=== PATIENT | male | born 1950 | race Caucasian/White ===

== ENCOUNTER 2018-11-13 13:38 | Inpatient (IN) | payer MEDICARE, SELFPAY | END 2018-11-15 16:33 | DRG 683 | PROVIDERS: Admitting Provider Internal Medicine; Emergency Provider Emergency Medicine; PCP Family Medicine; Visit Provider Internal Medicine | DX: N18.6 End stage renal disease (principal); I13.11 Hypertensive heart and chronic kidney disease without heart failure, with stage 5 chronic kidney disease, or end stage renal disease; I50.32 Chronic diastolic (congestive) heart failure; J96.11 Chronic respiratory failure with hypoxia; L97.319 Non-pressure chronic ulcer of right ankle with unspecified severity; D63.1 Anemia in chronic kidney disease; S00.83XA Contusion of other part of head, initial encounter; E11.621 Type 2 diabetes mellitus with foot ulcer; E11.22 Type 2 diabetes mellitus with diabetic chronic kidney disease; E11.319 Type 2 diabetes mellitus with unspecified diabetic retinopathy without macular edema; E11.21 Type 2 diabetes mellitus with diabetic nephropathy; E11.42 Type 2 diabetes mellitus with diabetic polyneuropathy; E78.5 Hyperlipidemia, unspecified; F41.8 Other specified anxiety disorders; M19.90 Unspecified osteoarthritis, unspecified site; G47.33 Obstructive sleep apnea (adult) (pediatric); N40.0 Benign prostatic hyperplasia without lower urinary tract symptoms; Z99.2 Dependence on renal dialysis; Z89.411 Acquired absence of right great toe; Z99.81 Dependence on supplemental oxygen; W18.39XA Other fall on same level, initial encounter | CPT/HCPCS: 36415; 36430; 70450; 72125; 80048; 80053; 82607; 82728; 82746; 83010; 83036; 83540; 83550; 83615; 84439; 84443; 84466; 85014; 85018; 85025; 85027; 85046; 86706; 86850; 86900; 86901; 86920; 87340; 93005; 93306; 96361; 96374; 97161; 97166; 99285; A9270; G0257; G0378; J1644; J1940; J7030; J7050; P9016; Q4081; Q9957 ==

== ENCOUNTER 2019-07-26 08:25 | Observation (INO) | payer MEDICARE, SELFPAY ==
[2019-07-26] VITALS (17 sets, daily range): BP systolic 139–188; BP diastolic 71–106; PULSE 58–102; RESP 14–32; TEMP 36.6–36.7; O2SAT 90–100; BMI 31.2
--- NOTE | ~2019-07-26 | XR_ITS ---
XR humerus RT 07/26/2019 10:05 INDICATION: Right arm pain after fall PROCEDURE: 2 views right humerus COMPARISON: No prior studies for comparison. FINDINGS: Fracture, dislocation or subluxation is not identified. There are arterial calcifications. The soft tissues appear within normal limits. No foreign bodies are identified. IMPRESSION: 1: NO ACUTE BONE OR JOINT ABNORMALITY IDENTIFIED. Reviewed, dictated and finalized at location B. [employer]
--- NOTE | ~2019-07-26 | CT_ITS ---
EXAMINATION: CTA brain carotid DATE: 07/26/2019 09:49 INDICATION: Right hemiparesis. TECHNIQUE: Computed tomographic angiography (CTA) of the head was performed without and with 100 mL O mnipaque-350 intravenous contrast. CTA of the neck was performed with intravenous contrast. Automated exposure control and iterative reconstruction technique were employed. The dose-length product was 1 847.45 mGy-cm. Maximum intensity projection and volume rendered 3D-reconstructions were created by lisa mendoza technologist on a separate workstation. COMPARISON: Head CT 11/13/2018 FINDINGS: HEAD CTA: There is no intracranial hemorrhage, acute infarction, or abnormal intracranial mass lesion . The ventricles are normal in size. The vertebral arteries are codominant. There is mucosal thickeni ng in the paranasal sinuses and dependent fluid in right maxillary sinus. There are periapical lucenc ies around tooth #7. The mastoid air cells are normal. There are likely changes of ocular lens replac ement surgeries. There is no significant stenosis of basilar artery or the posterior cerebral arterie s. There is no significant stenosis of the intracranial internal carotid arteries or anterior or midd le cerebral arteries. Anterior communicating artery is normal. Right posterior communicating artery i s normal. A left posterior communicating artery is not identified. There is no aneurysm. NECK CTA: Calcified mediastinal lymph nodes are consistent with old granulomatous disease. There is p laque in the proximal internal carotid arteries. There is 7% stenosis of the proximal right internal carotid artery relative to normal distal artery lumen diameter (NASCET criteria). There is 14% stenos is of the proximal left internal carotid artery relative to normal distal artery lumen diameter. Ther e is no significant stenosis of the vertebral arteries. There is severe cervical spondylosis. IMPRESSION: 1. Normal brain. 2. No aneurysm or significant intracranial arterial stenosis. 3. 7% stenosis of the proximal right internal carotid artery relative to normal distal artery lumen d iameter (NASCET criteria). 4. 14% stenosis of the proximal left internal carotid artery relative to normal distal artery lumen d iameter. Reviewed, dictated and finalized at location A. E BLENDER IMPRESSION: 1. Normal brain. 2. No aneurysm or significant intracranial arterial stenosis. 3. 7% stenosis of the proximal right internal carotid artery relative to normal distal artery lumen diameter (NASCET criteria). 4. 14% stenosis of the proximal left internal carotid artery relative to normal distal artery lumen diameter.
--- NOTE | ~2019-07-26 | XR_ITS ---
XR chest 2V 07/26/2019 09:10 Indication: CHF. Weakness. Procedure: AP and lateral views of the chest Comparison: Comparison to multiple prior studies sequentially, with oldest reviewed study dated 02/06. Findings: Elevated right diaphragm. There is airspace disease in the lower lungs, left greater than r ight. No pleural effusion or pneumothorax. There is atherosclerosis. No acute osseous abnormality. Impression: 1: Bibasilar airspace disease which may represent pneumonia or edema. Reviewed, dictated and finalized at location B. HAT ENGINEER Impression: 1: Bibasilar airspace disease which may represent pneumonia or edema.
--- NOTE | 2019-07-26 08:24 | ECG_ITS ---
Measurements Intervals [place] Rate: 96 P: 97 DE: 189 QRS: -31 QRSD: 111 T: 101 QT: 393 QTc: 498 Interpretive Statements SINUS RHYTHM LEFT AXIS DEVIATION DELAYED PRECORDIAL R/S TRANSITION LEFT VENTRICULAR HYPERTROPHY AND ST-T CHANGE BASELINE WANDER- I, II, AVR BORDERLINE ECG Electronically Signed On 07-26-2019 8:39:01 EXCELLENCE SPECIALIST by Joseph Ramires D.O.
--- NOTE | 2019-07-26 08:46 | ED.WEAKNESS ---
HPI - Weakness General Chief complaint: Weakness Stated complaint: WEAKNESS Time Seen by Provider: 07/26/19 08:43 Source: patient and RN notes reviewed Mode of arrival: EMS Limitations: no limitations History of Present Illness HPI Narrative: Pt is a 69 y/o male who presents to the ED via EMS with c/o generalized and rt arm weakness. He notes that he is currently on dialysis, and states that he received a normal treatment yesterday. Pt notes that he has had SOB for the past several days, and states that he developed generalized weakness yesterday. He also reports having a burning pain in the lt side of his chest last night, but denies any CP currently. Pt states that he woke up and disconnected his BIPAP machine to go to the bathroom earlier this morning, when he suddenly became weak and slowly fell to the ground around 7:30 AM. Pt was holding a cane using right arm before he fall. Pt notes that he landed on his rt elbow during the fall, and currently reports an abrasion on his rt elbow. He states that he believes he never fully lost consciousness, but notes that he felt off after the fall. Pt reports rt arm weakness starting sometime between when he fell and when he arrived to the ED. He states that he has a Hx of similar symptoms, noting that his last episode was attributed to abnormal potassium levels. MD Complaint: generalized weakness and focal weakness Onset (ago): unknown Location: RUE Context: history of similar Associated symptoms: chest pain (lt sided chest pain (resolved)), shortness of breath and other (abrasion on rt elbow) Related Data Home Medications Medication Instructions Recorded Confirmed cholecalciferol (vitamin D3) 125 5,000 unit PO DAILY 06/28/19 07/26/19 mcg (5,000 unit) tablet glimepiride 2 mg tablet 2 mg PO QACDINNER 06/28/19 07/26/19 melatonin 2.5 mg chewable tablet 2.5 mg PO DAILY 06/28/19 07/26/19 sertraline 50 mg tablet 50 mg PO BID 06/28/19 07/26/19 sevelamer carbonate 800 mg tablet 800 mg PO TID 06/28/19 07/26/19 amlodipine 2.5 mg PO DAILY 07/26/19 07/26/19 linagliptin [Tradjenta] 5 mg PO QAM 07/26/19 07/26/19 tamsulosin [Flomax] 0.4 mg PO HS 07/26/19 07/26/19 Allergies Allergy/AdvReac Type Severity Reaction Status Date / Time No Known Allergies Allergy Verified 07/26/19 08:38 Review of Systems Review of Systems: All systems reviewed & are unremarkable except as noted in HPI and below Constitutional: Constitutional: Denies chills, Denies fever(s), Denies headache(s) and Reports weakness (generalized) Cardiovascular: Cardiovascular: Reports chest pain (lt sided chest pain (resolved)) Respiratory: Respiratory: Reports dyspnea Gastrointestinal: Gastrointestinal: Denies abdominal pain, Denies diarrhea, Denies nausea and Denies vomiting Musculoskeletal: Musculoskeletal: Denies back pain and Denies neck pain Integumentary/Breasts: Skin/Breast: Reports wounds (abrasion on rt elbow) Neurologic: Reports focal weakness (rt arm weakness) and Denies other (LOC) [facility] Past Medical History Medical History Anemia in chronic kidney disease Anxiety Arthritis Cataracts, bilateral CHF (congestive heart failure) Chronic diabetic ulcer of right foot determined by examination Chronic hypercapnic respiratory failure 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 to type 2 diabetes mellitus Depression Diabetic neuropathy with neurologic complication Eczema History of amputation of hallux [place] (hard of hearing) HTN (hypertension) Nonrheumatic aortic (valve) stenosis Physical debility Restrictive airway disease Sleep apnea Type 2 diabetes mellitus with diabetic neuropathy, unspecified Vocal cord dysfunction Surgical History Surgical History Amputation of right great toe History of laryngoscopy Hx of cataract surgery Hx of left knee surgery Family History Family History (Reviewed 0
--- NOTE | 2019-07-26 08:48 | PC.NURSE ---
PT INFORMED OF NEED FOR URINE SAMPLE, NOTED THAT HE DOES NOT PRODUCE MUCH URINE, REFUSING STRAIGHT CATH AT THIS TIME, STATES HE WILL ATTEMPT AGAIN LATER.
--- NOTE | 2019-07-26 08:49 | PC.NURSE ---
MARISOL EDWARDS AT BEDSIDE ATTEMPTING BLOOD DRAW.
--- NOTE | 2019-07-26 09:00 | PC.NURSE ---
PT UNABLE TO PRODUCE URINE, REFUSING STRAIGHT CATH, STATES HE WILL ATEMPT LATER.
[2019-07-26 09:01] LABS: Basophils Percent Auto 0.5 % (0.2-1.2); Hematocrit 28.6 % (42.0-52.0); Hemoglobin 9.1 g/dL (14.0-18.0); Immature Granulocyte Absolute 0.02 K/mm3 (0.00-0.031); Immature Granulocyte Percent A 0.5 % (0-0.5); Immature Platelet Fraction Pct 7.2 % (0.9-11.2); Lymphocytes Percent Auto 7.7 % (18.3-44.2); Mean Corpuscular HGB Conc 31.8 g/dl (32-36); Mean Corpuscular Hemoglobin 30.7 pg (26-34); Mean Corpuscular Volume 96.6 fl (80-100); Mean Platelet Volume 11.7 fl (7.4-10.4); Monocytes Absolute Auto 0.4 K/mm3 (0.1-0.6); Monocytes Percent Auto 9.3 % (2.6-8.5); Neutrophils Absolute Auto 3.2 K/mm3 (1.3-6.7); Platelet Count Result 96 k/mm3 (150-375); Red Blood Count 2.96 M/mm3 (4.6-6.20); Red Cell Distribution Width 12.8 % (11.5-14.5); White Blood Count 3.9 K/mm3 (4.5-10.0)
[2019-07-26 09:11] LABS: Alanine Aminotransferase 14 U/L (4-50); Albumin Level 3.9 g/dL (3.5-5.1); Alkaline Phosphatase 95 U/L (38-126); Aspartate Amino Transferase 28 U/L (17-59); Bilirubin,Total 0.9 mg/dL (0.2-1.3); Blood Urea Nitrogen 33 mg/dL (9-20); Calcium 8.1 mg/dL (8.4-10.2); Carbon Dioxide 25 mmol/L (22-30); Chloride 98 mmol/L (98-107); Estimated CRCL calculation 20 ml/min; Estimated Glomerular Filt Rate 15; Glucose 158 mg/dL (75-110); Potassium 4.1 mmol/L (3.4-5.0); Sodium 138 mmol/L (137-145)
--- NOTE | 2019-07-26 09:30 | PC.NURSE ---
PT UNABLE TO PRODUCE URINE, REFUSING STRAIGHT CATH, STATES HE WILL ATEMPT LATER.
--- NOTE | 2019-07-26 10:00 | PC.NURSE ---
PT UNABLE TO PRODUCE URINE, REFUSING STRAIGHT CATH, STATES HE WILL ATEMPT LATER.
--- NOTE | 2019-07-26 10:32 | PC.NURSE ---
Addendum entered by Jolynn Tabares RN 07/26/19 10:32: PT HAS URINAL AT BEDSIDE. Original Note: PT UNABLE TO PRODUCE URINE SPECIMEN AT THIS TIME, REFUSING CATH.
--- NOTE | 2019-07-26 10:41 | PC.NURSE ---
Called to lab for troponin baseline add on.
[2019-07-26 11:03] LABS: Add Urine Microscopic? YES; Appearance Urine Clear (Clear); Bacteria Urine Trace /hpf; Bilirubin Urine Negative (Negative); Blood Urine 1+ (Negative); Color Urine Yellow (Yellow); Glucose Urine UA 2+ mg/dL (Negative); Ketones Urine Negative (Negative); Leukocyte Esterase Ur Negative LEU/UL (Negative); Mucus Urine Rare /lpf; Nitrate Urine Negative (Negative); Protein Urine 3+ mg/dL (Negative); RBC Urine 0-2 /hpf (0-2); Specific Grav Ur 1.014 (1.001-1.035); Urobilinogen Urine Negative mg/dL (<2.0); WBC Urine 0-3 /hpf
--- NOTE | 2019-07-26 12:06 | PC.NURSE ---
PHARMACY ON THE PHONE WITH DR. MALDONADO ABOUT HEPARIN DRIP.
[2019-07-26] MEDS: ASPIRIN 81 MG CHEWABLE TABLET 324 MG PO (12:08)
--- NOTE | 2019-07-26 12:13 | PC.NURSE ---
SPOKE WITH MARIA L FROM PHARMACY ABOUT HEPARIN, STATES TO HOLD ON GIVING TO PT BECAUSE SHE NEEDS TO MODIFY THE ORDER AND TALK TO THE PHYSICIAN AGAIN.
[2019-07-26] MEDS: HEPARIN SOD/D5W 100 UNITS/ML 25,000 UNITS/250 ML BAG 10 UNITS IV CONT (12:43)
--- NOTE | 2019-07-26 13:30 | PC.NURSE ---
This patient, Duong Pratt, was admitted to Intensive Care Unit-11. Patient/family oriented to hospital policies and general routines including ID bracelet, bed and alarms, visiting hours, pain management, procedures, bathroom and other care routines, personal items, smoking policy, room service/diet, and visiting hours. Valuables list has been completed. Information on how to activate the Rapid Response Team has been discussed. Patient/Family are encouraged to report perceived risks to care and to ask questions if they do not understand what they are told or what they should do.
[2019-07-26 13:54] LABS: Basophils Percent Auto 0.5 % (0.2-1.2); Eosinophils Percent Auto 0.3 % (0-4.4); Hematocrit 27.7 % (42.0-52.0); Hemoglobin 8.7 g/dL (14.0-18.0); Immature Granulocyte Absolute 0.01 K/mm3 (0.00-0.031); Immature Granulocyte Percent A 0.3 % (0-0.5); Lymphocytes Absolute Auto 0.32 K/mm3 (0.9-3.2); Lymphocytes Percent Auto 8.7 % (18.3-44.2); Mean Corpuscular HGB Conc 31.4 g/dl (32-36); Mean Corpuscular Hemoglobin 30.4 pg (26-34); Mean Corpuscular Volume 96.9 fl (80-100); Mean Platelet Volume 11.8 fl (7.4-10.4); Monocytes Absolute Auto 0.4 K/mm3 (0.1-0.6); Monocytes Percent Auto 10.1 % (2.6-8.5); Neutrophils Absolute Auto 2.9 K/mm3 (1.3-6.7); Neutrophils Percent Auto 80.1 % (45.5-73.1); Platelet Count Result 91 k/mm3 (150-375); Red Blood Count 2.86 M/mm3 (4.6-6.20); White Blood Count 3.7 K/mm3 (4.5-10.0)
[2019-07-26 14:42] LABS: INR 1.2; Prothrombin Time 14.8 Seconds (11.1-14.7)
[2019-07-26 14:43] LABS: Partial Thromboplastin Time 33.7 SECONDS (22.3-36.8)
--- NOTE | 2019-07-26 15:35 | WPDNEURCNPN ---
Assessment and Plan Assessment and plan (1) Right arm weakness: Code(s): R29.898 - Other symptoms and signs involving the musculoskeletal system Status: Acute (2) Restrictive airway disease: Code(s): J98.4 - Other disorders of lung Status: Acute (3) Nonrheumatic aortic (valve) stenosis: Code(s): I35.0 - Nonrheumatic aortic (valve) stenosis Status: Acute (4) [place] (hard of hearing): Code(s): H91.90 - Unspecified hearing loss, unspecified ear Status: Acute (5) Anemia in chronic kidney disease: Code(s): N18.9 - Chronic kidney disease, unspecified; D63.1 - Anemia in chronic kidney disease Status: Acute (6) Chronic hypercapnic respiratory failure: Code(s): J96.12 - Chronic respiratory failure with hypercapnia Status: Acute (7) 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 to type 2 diabetes mellitus: Code(s): E11.22 - Type 2 diabetes mellitus with diabetic chronic kidney disease; N18.6 - End stage renal disease; Z99.2 - Dependence on renal dialysis Status: Acute (8) TIA (transient ischemic attack): Code(s): G45.9 - Transient cerebral ischemic attack, unspecified Status: Acute Additional Plan this is most likely peripheral than the central however the patient has multiple factors which predisposed him to have a stroke so I will order the brain MRI and also cervical MRI in the meantime continue aspirin for stroke prophylaxis Consult date: 07/26/19 Time Seen: 15:15 HPI: Duong Pratt is a 69 year old male who is right-handed and is a dialysis patient was admitted because of the right arm weakness which is improving however it is associated with the pain in the distribution of the upper trunk of the blackish plexus and or C5 or C6 distribution he denies any problem with his lack he denies any neck pain he denies any headache nausea vomiting chest pain or shortness of breath he was given aspirin in the emergency room and is on heparin because of increased troponin the patient did not have any of these episodes in the past Review of Systems Review of Systems: All systems reviewed & are unremarkable except as noted in HPI and below PMFSH Past Medical History Medical History Anemia in chronic kidney disease Anxiety Arthritis Cataracts, bilateral CHF (congestive heart failure) Chronic diabetic ulcer of right foot determined by examination Chronic hypercapnic respiratory failure 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 to type 2 diabetes mellitus Depression Diabetic neuropathy with neurologic complication Eczema History of amputation of hallux [place] (hard of hearing) HTN (hypertension) Nonrheumatic aortic (valve) stenosis Physical debility Restrictive airway disease Sleep apnea Type 2 diabetes mellitus with diabetic neuropathy, unspecified Vocal cord dysfunction Surgical History Surgical History Amputation of right great toe History of laryngoscopy Hx of cataract surgery Hx of left knee surgery Family History Family History Mother Cerebrovascular accident Family history of diabetes mellitus in first degree relative Patient's mother is Sibling Family history of lung cancer Patient's brother is Other Family history of arthritis Social History Social History Social History: Smoking status: Never smoker Second hand tobacco smoke exposure: No Alcohol intake: never Substance use: never Substance use type: does not use Gender identity (if verbalized by the patient): Male Meds Home Medications and Allergies Home Medications Medication Instructions Recorded Confirmed Type atorvastatin 20 mg tablet 20 mg PO QPM
--- NOTE | 2019-07-26 16:26 | PM.CNCAR ---
Assessment and Plan Assessment and plan (1) Chest pain: Qualifiers: Chest pain type: unspecified Qualified Code(s): R07.9 - Chest pain, unspecified Code(s): R07.9 - Chest pain, unspecified Status: Acute Assessment and Plan: Seems to be ischemic in nature, he has elevated troponin, indicative of non ST elevation myocardial infarction. Start aspirin heparin, will proceed with cardiac catheterization. (2) ESRD (end stage renal disease) on dialysis: Code(s): N18.6 - End stage renal disease; Z99.2 - Dependence on renal dialysis Status: Acute (3) Nonrheumatic aortic (valve) stenosis: Code(s): I35.0 - Nonrheumatic aortic (valve) stenosis Status: Acute Assessment and Plan: Will get echocardiogram to evaluate severity of aortic valve stenosis (4) NSTEMI (non-ST elevated myocardial infarction): Code(s): I21.4 - Non-ST elevation (NSTEMI) myocardial infarction Status: Acute Assessment and Plan: Will proceed with cardiac cath today Will plan cardiac catheterization. The procedure was discussed with the patient, risks, benefits, and alternative diagnostic measure was explained, patient agreed to the procedure. Thank you for allowing me to participate in this patient's care, I will be following up with you. Please do not hesitate to call me for any other inquiry History of Present Illness History of Present Illness Consult date/time: 07/26/19 16:26 Chief complaint is chest pain and syncope. 69-year-old gentleman with history of diabetes mellitus, history of aortic valve stenosis, history of renal failure on hemodialysis came to the hospital here because of chest pain yesterday and says episode of syncope earlier this morning. A he came to the hospital here noted to have elevated troponin with troponin as high as 3.7. His pain lasted for 30 minutes or so and subsequently subsided, and he still having significant shortness of breath. Apparently he sees doctors at [facility] and he has been seen for aortic valve stenosis. But did not have cardiac catheterization yet. Apparently was supposed to have an echocardiogram done as an outpatient before his next follow up with him there. He has significant shortness of breath, known lung disease, known renal failure on hemodialysis. He has mild orthopnea mild leg swelling and mild claudication as above history of syncope with no palpitation Reason For Visit: Right arm weakness Review of Systems Constitutional: Constitutional: Reports fatigue and Reports lethargy Cardiovascular: Cardiovascular: Reports as per HPI Respiratory: Respiratory: Reports dyspnea and Reports dyspnea on exertion PMFSH Past Medical History Medical History Anemia in chronic kidney disease Anxiety Arthritis Cataracts, bilateral CHF (congestive heart failure) Chronic diabetic ulcer of right foot determined by examination Chronic hypercapnic respiratory failure 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 to type 2 diabetes mellitus Depression Diabetic neuropathy with neurologic complication Eczema History of amputation of hallux [place] (hard of hearing) HTN (hypertension) Nonrheumatic aortic (valve) stenosis Physical debility Restrictive airway disease Sleep apnea Type 2 diabetes mellitus with diabetic neuropathy, unspecified Vocal cord dysfunction Surgical History Surgical History Amputation of right great toe History of laryngoscopy Hx of cataract surgery Hx of left knee surgery Family History Family History Mother Cerebrovascular accident Family history of diabetes mellitus in first degree relative Patient's mother is Sibling Family history of lung cancer Patient's brother is Other Family history of a
--- NOTE | 2019-07-26 16:49 | WPDMODSED ---
Moderate Sedation Note-Pt Data Patient Data Allergies Allergy/AdvReac Type Severity Reaction Status Date / Time No Known Allergies Allergy Verified 07/26/19 08:38 Home Medications Medication Instructions Recorded Confirmed Type atorvastatin 20 mg tablet 20 mg PO QPM #90 tablet 03/27/19 07/26/19 Rx furosemide 80 mg tablet 80 mg PO BID #180 tablet 05/10/19 07/26/19 Rx cholecalciferol (vitamin D3) 125 5,000 unit PO DAILY 06/28/19 07/26/19 History mcg (5,000 unit) tablet glimepiride 2 mg tablet 2 mg PO QACDINNER 06/28/19 07/26/19 History melatonin 2.5 mg chewable tablet 2.5 mg PO DAILY 06/28/19 07/26/19 History sertraline 50 mg tablet 50 mg PO BID 06/28/19 07/26/19 History sevelamer carbonate 800 mg tablet 800 mg PO TID 06/28/19 07/26/19 History lisinopril 20 mg tablet 20 mg PO DAILY #90 tablet 07/03/19 07/26/19 Rx amlodipine 2.5 mg PO DAILY 07/26/19 07/26/19 History linagliptin [Tradjenta] 5 mg PO QAM 07/26/19 07/26/19 History tamsulosin [Flomax] 0.4 mg PO HS 07/26/19 07/26/19 History Current Medications: Active Medications Heparin Sodium (Porcine) (Heparin Sodium) 4,000 units IV PUSH PRN PRN PRN Reason: aPTT less than 55 seconds Heparin Sodium (Porcine) (Heparin Sodium) 3,500 units IV PUSH PRN PRN PRN Reason: aPTT 55 - 70 seconds Heparin Sodium/Dextrose (Heparin Sodium/D5w 100 Units/Ml) 25,000 units in 250 mls @ 10 mls/hr IV CONT .Q24H STA; Protocol Stop: 07/27/19 11:49 Last Admin: 07/26/19 12:43 Dose: 1,000 units/hr, 10 mls/hr Documented by: Sodium Chloride (Normal Saline Iv) 500 mls @ 100 mls/hr IV CONT .Q5H JEFFREY Sedation/Anesthesia: No previous sedation/anesthesia problems (including family history). 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 to type 2 diabetes mellitus Depression Diabetic neuropathy with neurologic complication Eczema History of amputation of hallux [place] (hard of hearing) HTN (hypertension) Nonrheumatic aortic (valve) stenosis Physical debility Restrictive airway disease Sleep apnea Type 2 diabetes mellitus with diabetic neuropathy, unspecified Vocal cord dysfunction Surgical History Surgical History Amputation of right great toe History of laryngoscopy Hx of cataract surgery Hx of left knee surgery Family History Family History Mother Cerebrovascular accident Family history of diabetes mellitus in first degree relative Patient's mother is Sibling Family history of lung cancer Patient's brother is Other Family history of arthritis Social History Social History Social History: Smoking status: Never smoker Second hand tobacco smoke exposure: No Alcohol intake: never Substance use: never Substance use type: does not use Gender identity (if verbalized by the patient): Male Mod Sed Physical Exam Physical Exam Pre Procedural Exam: Normal: Appearance, Eyes, Ears, Nose, Neck, Throat, Airway, Lungs, Heart Size, Heart Rate, Heart Rhythm, Neuro Exam, Abdomen, Liver, Kidneys, Spleen, Breasts, Genitalia, Extremities and Skin Hours since solid foods: 6 Hours since liquid intake: 6 Internal Medicine - PN: Obj Da Vital Signs Vital Signs: Vital Signs - 24 hr 07/26/19 08:25 07/26/19 08:45 07/26/19 09:52 Temperature 36.6 C Pulse Rate 96 97 99 Respiratory Rate 31 H 24 H 29 H Blood Pressure 154/82 H 139/72 142/85 H Pulse Oximetry 97 96 97 07/26/19 10:51 07/26/19 11:04 07/26/19 11:57 Temperature Pulse Rate 93 95 93
--- NOTE | 2019-07-26 17:54 | ADMGEN ---
This patient, Duong Pratt, was admitted to IMU Room 231-01. Patient/family oriented to hospital policies and general routines including ID bracelet, bed and alarms, visiting hours, pain management, procedures, bathroom and other care routines, personal items, smoking policy, room service/diet, and visiting hours. Valuables list has been completed. Information on how to activate the Rapid Response Team has been discussed. Patient/Family are encouraged to report perceived risks to care and to ask questions if they do not understand what they are told or what they should do.
[2019-07-26 19:14] LABS: NT Pro B Type Natriuretic Pept > 35000 PG/ML (5-100)
[2019-07-26] MEDS: HEPARIN SODIUM 5,000 UNITS/ML VIAL 4000 UNITS IV PUSH (19:21)
[2019-07-26] MEDS: NITROGLYCERIN/D5W 200 MCG/ML 50 MG/250 ML BTL IV CONT (20:09)
[2019-07-26] MEDS: METOPROLOL TARTRATE 12.5 MG TABLET PO (20:09)
[2019-07-26] MEDS: FUROSEMIDE INJ 40 MG/4 ML VIAL IV PUSH (20:09)
--- NOTE | 2019-07-26 20:19 | PM.IMHP ---
H&P: HPI History of Present Illness Chief complaint: Right arm weakness Narrative: Duong Pratt is a 69 year old male with a past medical history of end-stage renal disease on hemodialysis, chronic hypoxic respiratory failure, obstructive sleep apnea, and aortic stenosis who presented to the ER with weakness. The patient stated that he woke up in the early childhood education specialist hours to use the restroom. He woke up been disconnected BiPAP to go to the bathroom when he became so weak that he slowly fell to the ground at 7:30 a.m.. He landed on his right elbow when he fell and had an abrasion to the area. He never fully lost consciousness but felt confused and did not feel like his usual self after the event. He started having right arm weakness between the time of his fall and arrival to the ER. He denies any changes in his speech or changes in his ambulation. He does have chronic gait instability due to Charcot joint and diabetic neuropathy. He reports that he has had progressive shortness of breath for the last couple of months. However shortness of breath has become more severe over the last couple of days while at rest. It was accompanied by generalized weakness yesterday and a burning pain in his left chest last evening. The chest pain was moderate in intensity and lasted approximately 2 hours before resolving. It resolved 20 placed his pap therapy on. He has not had a recurrence of the chest pain. He thought the chest pain was due to his lung not expanding completely. He has had increased his home oxygen from 3 up to 4 L over the last 2 days due to his increased shortness of breath. He has not noticed any increased swelling. He has had some increased orthopnea. He had a full dialysis treatment on . He has been having normal bowel movements and in fact was on the bedside commode having a bowel movement at the time of my arrival to the room. He denies any hematochezia or melena. He does have known anemia chronic disease. Hemoglobin is around his baseline. Review of Systems Review of Systems: Narrative: Except as documented in the HPI, all other systems were reviewed and are negative. 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 Managed [address] Dr. Bert [place] (hard of hearing) HTN (hypertension) Nonrheumatic aortic (valve) stenosis Physical debility Restrictive airway disease Sleep apnea On trilogy Type 2 diabetes mellitus with diabetic neuropathy, unspecified Vocal cord dysfunction Surgical History Surgical History (Updated 07/26/19 @ 20:46 by Erika Zarate DO) Amputation of right great toe History of amputation of hallux Right foot History of bilateral cataract extraction History of laryngoscopy Hx of left knee surgery Family History Family History (Updated 07/26/19 @ 20:52 by Erika Zarate DO) Mother Cerebrovascular accident Diabetes mellitus Sibling Graves disease Sister agrees disease Lung cancer Brother of lung cancer Mother Seizure disorder Diabetes mellitus Cerebrovascular accident Other Family history of arthritis Social History Social History (Updated 07/26/19 @ 20:54 by Erika
[2019-07-26 20:21] LABS: Glucose Point of Care 226 (65-105)
[2019-07-26] MEDS: ATORVASTATIN 20 MG TABLET PO (21:46)
[2019-07-26] MEDS: MELATONIN 3 MG TABLET PO (21:46)
[2019-07-26] MEDS: TAMSULOSIN HCL 0.4 MG CAPSULE PO (21:46)
[2019-07-26] MEDS: SERTRALINE HCL 50 MG TABLET PO (21:47)
[2019-07-27] VITALS: BP 156/74; PULSE 61; PULSE 64; RESP 16; TEMP 36.5; O2SAT 95
[2019-07-27 00:48] VITALS: PULSE 80; O2SAT 95
--- NOTE | 2019-07-27 01:30 | PC.NURSE ---
0130- Patient transferred to [facility]. Report given to Brandie LINDA, room 8316. Patient with no complaints, comfortable upon transfer. Ashley called and notified. Belongings returned to patient.
--- NOTE | 2019-07-27 09:48 | PM.PNCARD ---
Subjective Date/time seen: 07/27/19 09:48 I made arrangement to transfer patient to [place] as family requested, I had to make several phone calls to [facility] through the transfer line, it was very difficult task as they had me talk to several doctors and each 1 of them try to refuse taking the patient initially had buttock to the CCU doctor in charge, who stated that the patient should be in ICU medical ICU, then I was on the phone with the ICU doctor for some time and she also stated that the patient is not appropriate for their ICU, but she promised that she will connect me to the appropriate doctor to make the transfer. Finally patient was transferred to [place] for further care. Yesterday before transfer we were thinking about doing cardiac catheterization on the patient, we brought him to the laborer, he was very anxious and started moving on the table, his oxygen level was fluctuating between 82% to 96%, I tried to calm down before giving any sedation, but it seems that he has significant respiratory distress lying flat, due to that the procedure was canceled, as it is an elective procedure, and he did not seems to be stable enough to go through this with the current circumstance. We decided to put him in ICU in view of desaturation, for further fluid management, and stabilization. Will start a nitroglycerin drip, IV Lasix, and continue his blood pressure medications. Will consider a cardiac catheterization at later stage if he does not get transferred Objective Data Vital Signs Vital Signs: Vital Signs - 24 hr 07/26/19 09:52 07/26/19 10:51 07/26/19 11:04 Temperature Pulse Rate 99 93 95 Respiratory Rate 29 H 28 H 26 H Blood Pressure 142/85 H 188/106 H 186/96 H Pulse Oximetry 97 100 100 07/26/19 11:57 07/26/19 12:51 07/26/19 13:11 Temperature Pulse Rate 93 76 96 Respiratory Rate 18 30 H 18 Blood Pressure 162/96 H 147/81 H 142/85 H Pulse Oximetry 98 100 100 07/26/19 16:00 07/26/19 17:42 07/26/19 17:43 Temperature 36.7 C Pulse Rate 101 H 102 H 102 H Respiratory Rate 20 19 14 Blood Pressure 165/84 H 174/87 H Pulse Oximetry 95 100 100 07/26/19 17:50 07/26/19 18:00 07/26/19 20:00 Temperature 36.6 C Pulse Rate 100 79 75 Respiratory Rate 18 32 H Blood Pressure 165/85 H 150/71 H Pulse Oximetry 90 97 07/26/19 20:09 07/26/19 22:00 07/26/19 22:57 Temperature Pulse Rate 73 58 L 88 Respiratory Rate 16 Blood Pressure 159/75 H Pulse Oximetry 99 97 07/27/19 00:00 07/27/19 00:48 Temperature 36.5 C Pulse Rate 61 80 Respiratory Rate 16 Blood Pressure 156/74 H Pulse Oximetry 95 95 Meds/Results Radiology Results: ITS Impressions Chest X-Ray 07/26/19 09:11 Impression: 1: Bibasilar airspace disease which may represent pneumonia or edema. Head/Neck CTA 07/26/19 09:57 IMPRESSION: 1. Normal brain. 2. No aneurysm or significant intracranial arterial stenosis. 3. 7% stenosis of the proximal right internal carotid artery relative to normal distal artery lumen diameter (NASCET criteria). 4. 14% stenosis of the proximal left internal carotid artery relative to normal distal artery lumen diameter. Humerus X-Ray 07/26/19 10:06 IMPRESSION: 1: NO ACUTE BONE OR JOINT ABNORMALITY IDENTIFIED. Labs Labs: Laboratory Results - last 24 hr 07/26/19 07/26/19 07/26/19 08:53 10:53 13:49 WBC RBC Hgb Hct MCV MCH MCHC RDW Plt Count MPV Immature Gran % (Auto) Neut % (Auto) Lymph % (Auto) [place] % (Auto) Eos % (Auto) Baso % (Auto) Lymph # (Auto) [place] # (Auto) Eos # (Auto) Baso # (Auto) Abs Immat Gran (auto) Absolute Neuts (auto) Absolute Nucleated RBC Nucleated RBC % PT INR APTT POC Capillary Glucose Troponin I 3.720 H* 4.560 H* D NT-Pro-B Natriuret Pep Urine Color Yellow Urine Appearance Clear Urine pH 7.0 Ur Specific [place] 1.014 Urine Protein 3+
--- NOTE | 2019-08-06 15:48 | P.DS_ITS ---
DS: Diagnosis Admitting Diagnosis Admitting Diagnosis: Other symptoms and signs involving the musculoskeletal syst em DS: Summary Time Spent with Patient Time attestation: Total time spent providing and/or coordinating discharge services: 20 min Exam Narrative: Exam Narrative: This patient was transferred prior to my meeting him. Discharge Plan Discharge Consulting providers: Mazin Gomes ; Juan Mercado ; Darnell Haas ; Joseph Ramires ; Denys Benedict V. ; Erika Zarate Discharging Clinician: Mazin Gomes Patient Disposition: Acute Care Hospital Discharge Medications: No Action cholecalciferol (vitamin D3) 125 mcg (5,000 unit) tablet 5,000 unit PO DAILY RF: 0 glimepiride 2 mg tablet 2 mg PO QACDINNER RF: 0 sertraline 50 mg tablet 50 mg PO BID RF: 0 melatonin 2.5 mg tablet,chewable 2.5 mg PO DAILY RF: 0 sevelamer carbonate 800 mg tablet 800 mg PO TID RF: 0 Tradjenta 5 mg Tablet 5 mg PO QAM RF: 0 amlodipine 2.5 mg tablet 2.5 mg PO DAILY RF: 0 tamsulosin [Flomax] 0.4 mg capsule 0.4 mg PO HS RF: 0 atorvastatin 20 mg tablet 20 mg PO QPM Qty: 90 RF: 1 furosemide 80 mg tablet 80 mg PO BID Qty: 180 RF: 0 lisinopril 20 mg tablet 20 mg PO DAILY Qty: 90 RF: 0 Date of admission: 07/26/19 10:49 Admitting Provider: Robert Rock Discharge Date/Time: 07/27/19 01:31 Attending physician on admission: Robert Rock Condition: Stable Quality VTE Prophylaxis VTE prophylaxis: pharmacologic ordered (Heparin drip.)
--- NOTE | 2019-08-06 15:50 | PM.TDS ---
Transfer Discharge Sum: Prov Provider Date of admission: 07/26/19 10:49 Primary care physician: Laura Desai Admitting clinician: Robert Rock MD Consults: 07/26/19 Consult to Physician Routine Comment: Consulting Provider: Mazin Gomes Reason for consultation: recent chest pain, abnormal troponin Has provider been notified: Yes 07/26/19 10:41 Consult to Physician Routine Comment: Consulting Provider: Jorge Heard Reason for consultation: right arm weakenss Has provider been notified: Yes DS: Diagnosis Admitting Diagnosis Admitting Diagnosis: Other symptoms and signs involving the musculoskeletal system Discharge Diagnosis (1) NSTEMI (non-ST elevated myocardial infarction): Code(s): I21.4 - Non-ST elevation (NSTEMI) myocardial infarction Status: Acute (2) ESRD (end stage renal disease) on dialysis: Code(s): N18.6 - End stage renal disease; Z99.2 - Dependence on renal dialysis Status: Acute (3) Right arm weakness: Code(s): R29.898 - Other symptoms and signs involving the musculoskeletal system Status: Acute (4) Nonrheumatic aortic (valve) stenosis: Code(s): I35.0 - Nonrheumatic aortic (valve) stenosis Status: Acute (5) CHF (congestive heart failure): Code(s): I50.9 - Heart failure, unspecified Status: Acute (6) Chronic hypercapnic respiratory failure: Code(s): J96.12 - Chronic respiratory failure with hypercapnia Status: Acute (7) 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 to type 2 diabetes mellitus: Code(s): E11.22 - Type 2 diabetes mellitus with diabetic chronic kidney disease; N18.6 - End stage renal disease; Z99.2 - Dependence on renal dialysis Status: Acute Transfer Discharge Sum: Med Medications Active and Home Medications: Home Medications atorvastatin 20 mg tablet 20 mg PO QPM #90 tablet 03/27/19 [Rx Confirmed 07/26/19] furosemide 80 mg tablet 80 mg PO BID #180 tablet 05/10/19 [Rx Confirmed 07/26/19] cholecalciferol (vitamin D3) 125 mcg (5,000 unit) tablet 5,000 unit PO DAILY 06/28/19 [History Confirmed 07/26/19] glimepiride 2 mg tablet 2 mg PO QACDINNER 06/28/19 [History Confirmed 07/26/19] melatonin 2.5 mg chewable tablet 2.5 mg PO DAILY 06/28/19 [History Confirmed 07/26/19] sertraline 50 mg tablet 50 mg PO BID 06/28/19 [History Confirmed 07/26/19] sevelamer carbonate 800 mg tablet 800 mg PO TID 06/28/19 [History Confirmed 07/26/19] lisinopril 20 mg tablet 20 mg PO DAILY #90 tablet 07/03/19 [Rx Confirmed 07/26/19] amlodipine 2.5 mg PO DAILY 07/26/19 [History Confirmed 07/26/19] linagliptin [Tradjenta] 5 mg PO QAM 07/26/19 [History Confirmed 07/26/19] tamsulosin [Flomax] 0.4 mg PO HS 07/26/19 [History Confirmed 07/26/19] Transfer Discharge Sum: Hosp Hospital Course Hospital course: Duong Pratt is a 69 year old male admitted 07/25 and transferred to [place] 07/26. He presented after falling at home. He had right arm weakness. This with felt to be due to compressive neuropathy. He had elevated troponin. He was felt to have non ST elevation myocardial infarction. He was seen by Cardiology. He was in congestive heart failure. He has known end-stage renal disease on chronic hemodialysis. Patient was taken to cardiac laborer driver and unable lie flat for angiogram. At the discretion of his brake operator sheet metal he was transferred to [facility]. He was seen by Neurology during hospitalization. He did have a CT of the brain and neck that showed minor stenoses of the carotid arteries no evidence for stroke or bony abnormality. Nephrology was consulted but the patient transferred prior to their visiting with him. Time Spent with Patient Time attestation: Total time spent providing and/or coordinating transfer services: 20 min Exam Narrative: Exam Narrative: Patient was transferred prior to my meeting him.
== END 2019-07-27 01:31 | disposition short-term general hospital (02) ==
LOC: ANHED 10:46 → ANH3MEDSUR 11:19 → ANHIMU 13:14 → ANHICU 18:03
PROVIDERS: Specialist; Admitting Provider Internal Medicine; Emergency Provider Emergency Medicine; Visit Provider Internal Medicine
PROC: 4A023N7 Measurement of Cardiac Sampling and Pressure, Left Heart, Percutaneous Approach (ICD-10-PCS; CPT 93452; principal; 2019-07-26 14:30)
DX: I21.4 Non-ST elevation (NSTEMI) myocardial infarction (principal); R29.898 Other symptoms and signs involving the musculoskeletal system; E11.22 Type 2 diabetes mellitus with diabetic chronic kidney disease; I13.2 Hypertensive heart and chronic kidney disease with heart failure and with stage 5 chronic kidney disease, or end stage renal disease; I50.9 Heart failure, unspecified; N18.6 End stage renal disease; Z99.2 Dependence on renal dialysis; D63.1 Anemia in chronic kidney disease; I35.0 Nonrheumatic aortic (valve) stenosis; J96.12 Chronic respiratory failure with hypercapnia; E11.610 Type 2 diabetes mellitus with diabetic neuropathic arthropathy; G47.33 Obstructive sleep apnea (adult) (pediatric); J98.4 Other disorders of lung; H91.90 Unspecified hearing loss, unspecified ear; Z79.899 Other long term (current) drug therapy
CPT/HCPCS: 36415; 70496; 70498; 71046; 73060; 80053; 81001; 83880; 84484; 85025; 85055; 85610; 85730; 93005; 96365; 96366; 96375; 99211; 99285; A9270; G0378; G0463; J1644; J1940; J2250; J3010; Q9967

== ENCOUNTER 2019-09-05 07:02 | Emergency (ER) | payer MEDICARE, SELFPAY ==
--- NOTE | 2019-09-05 08:04 | ED.CPR ---
HPI - CPR General Chief Complaint: Cardiac Arrest/CPR Stated Complaint: cardiac arrest Time Seen by Provider: 09/05/19 07:08 Source: EMS Mode of arrival: EMS Limitations: clinical condition History of Present Illness HPI narrative: 69-year-old with a history of diabetes, CKD on hemodialysis, COPD was brought in cardiac arrest. As per the EMS patient was on his way to get dialysis this morning. Per patient was restless all night however this morning he was on his way to the dialysis was in the backseat of the car while she was driving here slumped over. She then called 911 upon their arrival patient was unresponsive with asystole ,ACLS protocol was for followed and was later brought to the ER. Upon arrival to the ER patient's stated that he is DNR. complaint: found unresponsive and stopped breathing Initial findings in the field: unresponsive and no respirations Known history of: CAD Treatments prior to arrival: intubation and epinephrine mgs # (4) Related Data Home Medications Medication Instructions Recorded Confirmed cholecalciferol (vitamin D3) 125 5,000 unit PO DAILY 06/28/19 07/26/19 mcg (5,000 unit) tablet glimepiride 2 mg tablet 2 mg PO QACDINNER 06/28/19 07/26/19 melatonin 2.5 mg chewable tablet 2.5 mg PO DAILY 06/28/19 07/26/19 sertraline 50 mg tablet 50 mg PO BID 06/28/19 07/26/19 sevelamer carbonate 800 mg tablet 800 mg PO TID 06/28/19 07/26/19 amlodipine 2.5 mg PO DAILY 07/26/19 07/26/19 linagliptin [Tradjenta] 5 mg PO QAM 07/26/19 07/26/19 tamsulosin [Flomax] 0.4 mg PO HS 07/26/19 07/26/19 Allergies Allergy/AdvReac Type Severity Reaction Status Date / Time No Known Allergies Allergy Verified 07/26/19 08:38 Review of Systems Review of Systems: ROS unobtainable: Yes unobtainable due to medical condition PMFSH Past Medical History Medical History Anemia in chronic kidney disease Anxiety Arthritis Charcot's arthropathy associated with type 2 diabetes mellitus CHF (congestive heart failure) Chronic diabetic ulcer of right foot determined by examination Chronic hypercapnic respiratory failure 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 to type 2 diabetes mellitus Chronic respiratory failure with hypoxia, on home O2 therapy On home O2 3 L Depression Diabetic neuropathy with neurologic complication Diabetic ulcer of right foot associated with diabetes mellitus due to underlying condition, with muscle involvement without evidence of necrosis (02/14/18) Eczema End-stage renal disease on hemodialysis On hemodialysis since 2016. Managed by Dr. Bert KING (hard of hearing) HTN (hypertension) Nonrheumatic aortic (valve) stenosis Physical debility Restrictive airway disease Sleep apnea On trilogy Type 2 diabetes mellitus with diabetic neuropathy, unspecified Vocal cord dysfunction Surgical History Surgical History (Updated 07/26/19 @ 20:46 by Erika Zarate DO) Amputation of right great toe History of amputation of hallux Right foot History of bilateral cataract extraction History of laryngoscopy Hx of left knee surgery Family History Family History (Updated 07/26/19 @ 20:52 by Erika Zarate DO) Mother Cerebrovascular accident Diabetes mellitus Sibling Graves disease Sister agrees disease Lung cancer Brother of lung cancer Mother Seizure disorder Diabetes mellitus Cerebrovascular accident Other Family history of arthritis Social History Social History (Updated 07/26/19 @ 20:54 by Erika Zarate DO) Social History: Primary care physician: Dr. Laura Desai Code status: Full code per EMR Smoking status: Never smoker Second hand tobacco smoke exposure: No Alcohol intake: never Substance use: never Substance use type: does not use Additional living arrangements comments: The patient lives with
== END 2019-09-05 08:20 | disposition expired ==
PROVIDERS: Emergency Provider Family Medicine
DX: I46.9 Cardiac arrest, cause unspecified (principal); I25.10 Atherosclerotic heart disease of native coronary artery without angina pectoris; Z66 Do not resuscitate; Z99.2 Dependence on renal dialysis; J44.9 Chronic obstructive pulmonary disease, unspecified; E11.22 Type 2 diabetes mellitus with diabetic chronic kidney disease; I13.2 Hypertensive heart and chronic kidney disease with heart failure and with stage 5 chronic kidney disease, or end stage renal disease; I50.9 Heart failure, unspecified; N18.6 End stage renal disease; D63.1 Anemia in chronic kidney disease; M19.90 Unspecified osteoarthritis, unspecified site; E11.610 Type 2 diabetes mellitus with diabetic neuropathic arthropathy; J96.12 Chronic respiratory failure with hypercapnia; Z99.81 Dependence on supplemental oxygen; F32.9 Major depressive disorder, single episode, unspecified; F41.9 Anxiety disorder, unspecified; E11.621 Type 2 diabetes mellitus with foot ulcer; L97.515 Non-pressure chronic ulcer of other part of right foot with muscle involvement without evidence of necrosis; E11.40 Type 2 diabetes mellitus with diabetic neuropathy, unspecified; G47.30 Sleep apnea, unspecified; Z89.411 Acquired absence of right great toe; Z89.431 Acquired absence of right foot; Z98.42 Cataract extraction status, left eye; Z98.41 Cataract extraction status, right eye; Z79.84 Long term (current) use of oral hypoglycemic drugs
CPT/HCPCS: 92950; 99285; J0171